=== PATIENT | male | born 1965 | race Hispanic/Latino ===

== ENCOUNTER 2025-04-04 17:58 | Emergency (ER) | payer OTHER ==
[~2025-04-04] VITALS: Ht 170.2 cm; Wt 87.5 kg
[~2025-04-04 17:58] MED LIST: CEFDINIR300 MG PO
[2025-04-04 19:00] VITALS: PULSE 69; RESP 16; TEMP 97.8
[2025-04-04 22:05] VITALS: BP 142/80; PULSE 70; RESP 20; O2SAT 96
== END 2025-04-04 21:45 | disposition home or self-care (01) ==
LOC: ER 19:41
DX: R07.89 Other chest pain (principal); S29.011A Strain of muscle and tendon of front wall of thorax, initial encounter
CPT/HCPCS: 71101; 99283